=== PATIENT | male | born 1995 | race Two or more races ===

== ENCOUNTER → 2016-11-21 | Outpatient (REF) | payer BC | LOC: M LAB REF 17:32 | PROVIDERS: ATTEND Pediatrics | DX: Z00.00 Encounter for general adult medical examination without abnormal findings (principal) ==

== ENCOUNTER → 2016-11-23 | Outpatient (REF) | payer BC | LOC: M LAB REF 16:18 | PROVIDERS: ATTEND Pediatrics | DX: Z00.00 Encounter for general adult medical examination without abnormal findings (principal) ==